=== PATIENT | male | born 1995 | race Hispanic/Latino ===

== ENCOUNTER 2017-07-26 07:40 | Outpatient (CLI) | payer BC ==
--- NOTE | 2017-07-26 08:26 | XRay Report ---
LEFT SHOULDER, 2 views: History: Shoulder pain. Comparison: Bilateral shoulders dated 05/07/17. Bone mineralization is normal. No acute osseous findings or joint pathology is detected. The soft tissues are unremarkable. IMPRESSION: Left shoulder within normal limits.
== END 2017-07-26 07:41 | disposition home or self-care (01) ==
LOC: SPVIMAG 07:40
PROVIDERS: ATTEND Orthopaedic Surgery
DX: M25.512 Pain in left shoulder (principal)